=== PATIENT | male | born 1965 | race Caucasian/White ===

== ENCOUNTER 2017-09-07 21:09 | Inpatient (IN) | payer BC ==
[~2017-09-07] VITALS: Ht 182.9 cm; Wt 108.8 kg
[2017-09-07 22:07] LABS: Basophils # (auto) 0 uL; Basophils % (auto) 0.2 % (0.0-2.0); Eosinophils # (auto) 0.1 uL; Eosinophils % (auto) 0.9 % (0.0-7.0); Hematocrit 43.6 % (41.0-53.0); Hemoglobin 15.1 g/dL (13.5-17.5); Lymphocytes # (auto) 1.6 uL; Lymphocytes % (auto) 12.8 % (10.0-50.0); Mean Corpuscular Hemoglobin 29.7 pg (28.0-32.0); Mean Corpuscular Hgb Conc. 34.5 g/dL (32.0-36.0); Mean Corpuscular Volume 85.9 fL (80.0-100.0); Monocytes # (auto) 0.9 uL; Monocytes % (auto) 7.4 % (0.0-12.0); Neutrophils % (auto) 78.7 % (37.0-80.0); Platelet Count (auto) 294 10^3/uL (140-450); Red Blood Cells 5.08 10^6/uL (4.5-5.90); Red Cell Distribution Width 12.4 % (11.8-14.3); White Blood Cell 12.7 10^3/uL (4.4-10.8)
[2017-09-07 22:20] LABS: Albumin 3.9 g/dL (3.4-5.0); Bilirubin, Total 0.9 mg/dL (0.2-1.0); Calcium 9.1 mg/dL (8.5-10.1); Potassium 4.1 mmol/L (3.5-5.1); Total Protein 7.6 g/dL (6.4-8.2)
[2017-09-07 22:22] LABS: INR 0.95 (0.9-1.15); Prothrombin Time 10.2 sec (9.27-12.13)
[2017-09-08] MEDS ORDERED: SODIUM CHLORIDE 0.9% 1,000 ML IVB ONE (06:53)
[2017-09-08] MEDS ORDERED: KETOROLAC TROMETH 30 MG/ML 1ML VIAL IV ONE (07:00)
[2017-09-08] MEDS ORDERED: METOCLOPRAMIDE HCL 5MG/ml INJ 2ml VIAL IV ONE (07:00)
[2017-09-08] MEDS ORDERED: TAMSULOSIN HYDROCHLORIDE 0.4 MG CAP PO ONE (07:00)
[2017-09-08] MEDS ORDERED: PROMETHAZINE HCL 25 MG/ML 1ML IV PRN (08:15)
[2017-09-08] MEDS ORDERED: MORPHINE SULF INJ 2 MG/ML SYRINGE 1ML IV PRN (08:15)
[2017-09-08] MEDS ORDERED: cefTRIAXone 1GM/10ml IVPUSH 10 ML IV ONE (08:15)
[2017-09-08] MEDS ORDERED: traMADol HCL 50 MG TAB PO PRN (08:15)
[2017-09-08] MEDS ORDERED: TEMAZEPAM 15 MG CAP PO PRN (08:15)
[2017-09-08] MEDS ORDERED: NITROGLYCERIN 0.4 MG SL TAB SL PRN (08:15)
[2017-09-08] MEDS ORDERED: LORazepam 0.5 MG TAB PO PRN (08:15)
[2017-09-08] MEDS: cefTRIAXone 1GM/10ml IVPUSH 10 ML IV SCH (09:00)
[2017-09-08 09:35] LABS: Urine Bacteria NONE SEEN /hpf (None Seen); Urine Blood Negative /uL (Negative); Urine Mucus FEW (None Seen); Urine WBC 1 /hpf (0 - 3)
[2017-09-08] MEDS: KETOROLAC TROMETH 30 MG/ML 1ML VIAL IV PRN ×2 (09:35→17:19)
[2017-09-08] MEDS: SODIUM CHLORIDE 0.9% 1,000 ML IV SCH ×2 (09:35→21:53)
[2017-09-08] MEDS: FAMOTIDINE 20 MG TAB PO SCH ×2 (09:42→21:52)
[2017-09-08] MEDS ORDERED: MANNITOL 20 % (20GM/100ML) 62.5 ML IV ONE (12:00)
[2017-09-08 19:40] VITALS: BP 143/78
[2017-09-08] MEDS: ACETAMINOPHEN 500 MG TAB PO PRN (21:57)
[2017-09-08 22:00] VITALS: BP 124/67
[2017-09-09 05:00] VITALS: BP 137/81
[2017-09-09 06:05] LABS: Basophils # (auto) 0 uL; Basophils % (auto) 0.4 % (0.0-2.0); Eosinophils # (auto) 0.1 uL; Eosinophils % (auto) 1.2 % (0.0-7.0); Hematocrit 38.7 % (41.0-53.0); Hemoglobin 13.7 g/dL (13.5-17.5); Lymphocytes # (auto) 1.9 uL; Lymphocytes % (auto) 19.7 % (10.0-50.0); Mean Corpuscular Hgb Conc. 35.6 g/dL (32.0-36.0); Mean Corpuscular Volume 87.3 fL (80.0-100.0); Monocytes % (auto) 10.7 % (0.0-12.0); Neutrophils # (auto) 6.7 uL; Nucleated Red Blood Cells % 0.1 %; Platelet Count (auto) 235 10^3/uL (140-450); Red Blood Cells 4.43 10^6/uL (4.5-5.90); Red Cell Distribution Width 12.4 % (11.8-14.3); White Blood Cell 9.8 10^3/uL (4.4-10.8)
[2017-09-09] MEDS: SODIUM CHLORIDE 0.9% 1,000 ML IV SCH ×2 (06:06→14:14)
[2017-09-09] MEDS: ACETAMINOPHEN 500 MG TAB PO PRN (08:22)
[2017-09-09 08:43] VITALS: BP 130/82
[2017-09-09] MEDS: FAMOTIDINE 20 MG TAB PO SCH ×2 (09:57→21:34)
[2017-09-09] MEDS: cefTRIAXone 1GM/10ml IVPUSH 10 ML IV SCH (09:57)
[2017-09-09] MEDS ORDERED: OXYBUTYNIN CHL 5 MG TAB PO SCH (10:00)
[2017-09-09 12:41] VITALS: BP 123/81
[2017-09-09] MEDS: KETOROLAC TROMETH 30 MG/ML 1ML VIAL IV PRN ×2 (13:19→21:36)
[2017-09-09 16:18] LABS: Free T3 2.52 pg/mL (2.3-4.2); Free T4 (Free Thyroxine) 1.15 ng/dL (0.89-1.76)
[2017-09-09 16:36] VITALS: BP 115/68
[2017-09-09] MEDS ORDERED: TAMSULOSIN HYDROCHLORIDE 0.4 MG CAP PO SCH (18:00)
[2017-09-09 22:00] VITALS: BP 112/69
[2017-09-10] MEDS: SODIUM CHLORIDE 0.9% 1,000 ML IV SCH ×2 (00:14→06:32)
[2017-09-10 05:30] VITALS: BP 119/59
[2017-09-10 07:33] VITALS: BP 125/74
[2017-09-10 08:00] VITALS: BP 125/74
[2017-09-10] MEDS: FAMOTIDINE 20 MG TAB PO SCH (09:54)
[2017-09-10] MEDS: KETOROLAC TROMETH 30 MG/ML 1ML VIAL IV PRN (09:54)
[2017-09-10 11:57] VITALS: BP 134/72
[2017-09-10] MEDS ORDERED: MANNITOL 20 % (20GM/100ML) 62.5 ML IV ONE (12:00)
[2017-09-10] MEDS ORDERED: MANNITOL FTV 25% 12.5 GM/50 ML 50 ML IV ONE (15:30)
[2017-09-10] MEDS ORDERED: TAMSULOSIN HYDROCHLORIDE 0.4 MG CAP PO SCH (18:00)
== END 2017-09-10 15:38 | disposition home or self-care (01) | DRG 872 ==
LOC: ER 21:09 → TELE 21:10 → ER 09-08 01:56 → TELE-CENTR 09-08 18:00
PROVIDERS: ADMIT Internal Medicine; ATTEND Internal Medicine
DX: A41.9 Sepsis, unspecified organism (principal); N13.6 Pyonephrosis; E04.1 Nontoxic single thyroid nodule; N23 Unspecified renal colic; N40.0 Benign prostatic hyperplasia without lower urinary tract symptoms; Z87.442 Personal history of urinary calculi; Z90.49 Acquired absence of other specified parts of digestive tract
CPT/HCPCS: 36415; 71045; 74018; 74176; 80053; 81001; 82150; 83690; 84439; 84443; 84481; 85025; 85610; 85730; 96361; 96365; 96375; J1885